=== PATIENT | female | born 1965 | race Caucasian/White ===

== ENCOUNTER 2019-07-14 12:51 | Emergency (ER) | payer BC, OTHER ==
[~2019-07-14] VITALS: Ht 157.5 cm; Wt 108.0 kg
[~2019-07-14 12:51] MED LIST: FENO145T PO; LISI40TA4 PO; METF100028 PO; [UNRECOGNIZED DRUG - CODE] SC
[2019-07-14 12:52] VITALS: BP 158/75
--- NOTE | 2019-07-14 13:00 | NUR ---
PATIENT AMBULATED TO BED 7.
--- NOTE | 2019-07-14 13:01 | NUR ---
Patient being evaluated by DR FRANKLIN at bedside.
[2019-07-14] MEDS ORDERED: NACL 0.9% 1,000 ML IV ONE (13:10)
--- NOTE | 2019-07-14 13:20 | NUR ---
53 Y/O F C/C ABNORMAL LABS. PT REFERRED TO ER FROM PCP. POTASSIUM TAKEN AT PCP 6.6. PT ASYMPTOMATIC, NO DISTRESS, NO PAIN. PLACED ON MONITOR. FULL FOWLERS. PT NKA. HX DM,HTN,HDL. RX ATORVASTATIN,LISINOPRIL,METFORMIN,ASA. NO N/V/D. SIDE RAIL X1.
--- NOTE | 2019-07-14 13:22 | NUR ---
LAB AT BEDSIDE
--- NOTE | 2019-07-14 13:30 | NUR ---
STAT LABS DRAWN FROM AND GIVEN TO COP EXAMINER.
[2019-07-14 13:31] LABS: BASOPHILS % (AUTO) 0.5 % (0.0-2.0); EOSINOPHILS # (AUTO) 0.2 K/uL (0-0.4); EOSINOPHILS % (AUTO) 2.7 % (0.0-4.0); HEMATOCRIT 33.3 % (36-48); HEMOGLOBIN 11.1 g/dL (12.0-16.0); LYMPHOCYTES # (AUTO) 2.3 K/uL (2.5-16.5); MEAN CORPUSCULAR HEMOGLOBIN 30 pg (27-31); MEAN CORPUSCULAR HGB CONC 33 g/dL (33-37); MEAN CORPUSCULAR VOLUME 88.9 fL (80-94); MONOCYTES # (AUTO) 0.4 K/uL (0.8-1.0); NEUTROPHILS # (AUTO) 4.2 K/uL (1.8-7.7); NEUTROPHILS % (AUTO) 59.8 % (42.2-75.2); PLATELET COUNT (AUTO) 280 K/uL (140-450); RED BLOOD CELL COUNT(AUTO) 3.75 MIL/uL (4.20-5.40); RED CELL DISTRIBUTION WIDTH 13.2 % (11.6-13.7); WHITE BLOOD COUNT (AUTO) 7.1 K/uL (4.8-10.8)
--- NOTE | 2019-07-14 13:54 | NUR ---
XR AT BEDSIDE.
--- NOTE | 2019-07-14 13:54 | NUR ---
XRAY AT BEDSIDE
[2019-07-14 14:14] LABS: ANION GAP 13.4 (8-16); CARBON DIOXIDE 26.4 mmol/L (21-32); POTASSIUM 4.8 mmol/L (3.5-5.1)
--- NOTE | 2019-07-14 14:15 | NUR ---
PT AMBULATED TO BATHROOM, STEADY GAIT.
--- NOTE | 2019-07-14 14:37 | NUR ---
DR. FRANKLIN AT BEDSIDE
[2019-07-14 14:55] VITALS: BP 145/58
--- NOTE | 2019-07-14 14:55 | NUR ---
Patient discharged with v/s stable. Written and verbal after care instructions given and explained. Patient alert, oriented and verbalized understanding of instructions. Ambulatory with steady gait. All questions addressed prior to discharge. ID band removed. Patient advised to follow up with PMD. Rx of amlodipine given. Patient educated on indication of medication including possible reaction and side effects. Opportunity to ask questions provided and answered.
== END 2019-07-14 14:55 | disposition home or self-care (01) ==
LOC: MED 12:51
DX: R79.9 Abnormal finding of blood chemistry, unspecified (principal); N17.0 Acute kidney failure with tubular necrosis; E11.9 Type 2 diabetes mellitus without complications; E87.5 Hyperkalemia; I10 Essential (primary) hypertension; Z79.899 Other long term (current) drug therapy; Z79.84 Long term (current) use of oral hypoglycemic drugs
CPT/HCPCS: 36415; 71045; 80048; 84443; 84484; 85025; 93005; 99285; J7030; Q0092

== ENCOUNTER 2020-05-27 04:45 | Emergency (ER) | payer OTHER ==
[~2020-05-27] VITALS: Ht 154.9 cm; Wt 104.8 kg
[~2020-05-27 04:45] MED LIST changes: +LISI40TA10 PO; -LISI40TA4 PO
[2020-05-27 04:47] VITALS: BP 154/72
--- NOTE | 2020-05-27 04:57 | NUR ---
54 YR OLD FEMALE PRESENTED TO THE ER WITH CC OF RIGHT KNEE PAIN AND LOWER BACK PAIN. PT IS AOX4. PT STATES 9/10 NON-RADIATING SHARP RIGHT KNEE PAIN AND 8/10 NON-RADIATING SHARP LOWER BACK PAIN. PT STATES WALKING LAST NIGHT AND RT KNEE AND LOWER BACK PAIN STARTED. PT DENIES OTHER MEDICAL COMPLAINTS. BED LOCKED IN LOWEST POSITION WITH 2 SIDE RAILS UP FOR SAFETY. WILL CONTINUE TO MONITOR. HISTORY- DM, HTN, ARTHRITIS, HIGH CHOLESTEROL ALLERGIES- NONE
--- NOTE | 2020-05-27 04:57 | NUR ---
ERMD AT BEDSIDE FOR MEDICAL EVALUATION.
[2020-05-27] MEDS ORDERED: KETOROLAC 30 MG/ML VIAL IM ONE (05:05)
--- NOTE | 2020-05-27 05:15 | NUR ---
X-RAY AT BEDSIDE.
--- NOTE | 2020-05-27 06:06 | NUR ---
PT FOUND AWAKE IN SEMI-ROSE'S POSITION IN BED. PT STATES 1/10 RIGHT KNEE AND LOWER BACK PAIN. PT DENIES OTHER MEDICAL COMPLAINTS. BED LOCKED IN LOWEST POSITION WITH 2 SIDE RAILS UP FOR SAFETY.
[2020-05-27] MEDS ORDERED: NAPR-54 PO (06:42)
[2020-05-27 07:06] VITALS: BP 134/69
== END 2020-05-27 07:06 | disposition home or self-care (01) ==
LOC: MED 04:45
DX: S83.91XA Sprain of unspecified site of right knee, initial encounter (principal); E11.9 Type 2 diabetes mellitus without complications; I10 Essential (primary) hypertension; Z79.4 Long term (current) use of insulin; Z79.899 Other long term (current) drug therapy; X50.1XXA Overexertion from prolonged static or awkward postures, initial encounter; Y93.01 Activity, walking, marching and hiking; Y92.89 Other specified places as the place of occurrence of the external cause; Y99.8 Other external cause status
CPT/HCPCS: 73562; 96372; 99283; J1885

== ENCOUNTER 2020-06-29 02:16 | Emergency (ER) | payer OTHER ==
[~2020-06-29] VITALS: Ht 154.9 cm; Wt 104.3 kg
[~2020-06-29 02:16] MED LIST changes: +NAPR-54 PO
[2020-06-29 02:22] VITALS: BP 157/77
--- NOTE | 2020-06-29 02:22 | NUR ---
TO BED AMBULATORY
--- NOTE | 2020-06-29 02:27 | NUR ---
54 Y/O FEMALE PRESENTS TO THE ED WITH COMPLAINTS OF N/V/D AND ABDOMINAL PAIN. PT REPORTS THAT IT ALL HAPPENED YESTERDAY. PAIN IS A 9/10 PAIN. ABDOMEN SOFT, ROUND, NON-TENDER, AND ACTIVE IN ALL QUADRANTS. PT DENIES BEING IN CONTACT WITH ANYONE WITH COVID. TYLENOL WAS TAKEN AT 2200 WITH NO RELIEF. VSS. SKIN IS PINK/WARM/DRY; AAOX4. PMH: DM, HTN, HDL, ARTHRITIS ALLERGIES: NKA
--- NOTE | 2020-06-29 02:29 | NUR ---
PT AMBULATED TO THE BATHROOM
[2020-06-29] MEDS ORDERED: KETOROLAC 30 MG/ML VIAL IVP ONE (02:35)
[2020-06-29] MEDS ORDERED: ONDANSETRON 4 MG/2 ML VIAL IVP ONE (02:35)
[2020-06-29] MEDS ORDERED: NACL 0.9% 1,000 ML IV ONE (02:35)
--- NOTE | 2020-06-29 03:18 | NUR ---
PATIENT SENT TO CT VIA [place]
--- NOTE | 2020-06-29 03:25 | NUR ---
BLOOD SENT TO LAB, RECEIVED BY ELISEO MOELLER
--- NOTE | 2020-06-29 03:27 | NUR ---
BACK FROM CT
[2020-06-29 03:35] LABS: BASOPHILS # (AUTO) 0.2 K/uL (0.00-0.22); BASOPHILS % (AUTO) 4.3 % (0.0-2.0); EOSINOPHILS % (AUTO) 0.6 % (0.0-4.0); HEMOGLOBIN 12.5 g/dL (12.0-16.0); LYMPHOCYTES # (AUTO) 0.8 K/uL (2.5-16.5); LYMPHOCYTES % (AUTO) 15.6 % (20.5-51.1); MEAN CORPUSCULAR HEMOGLOBIN 30 pg (27-31); MEAN CORPUSCULAR HGB CONC 34 g/dL (33-37); MEAN CORPUSCULAR VOLUME 87.4 fL (80-94); MONOCYTES # (AUTO) 0.2 K/uL (0.8-1.0); MONOCYTES % (AUTO) 3.2 % (1.7-9.3); NEUTROPHILS % (AUTO) 76.3 % (42.2-75.2); PLATELET COUNT (AUTO) 264 K/uL (140-450); RED BLOOD CELL COUNT(AUTO) 4.23 MIL/uL (4.20-5.40); RED CELL DISTRIBUTION WIDTH 13.2 % (11.6-13.7); WHITE BLOOD COUNT (AUTO) 5.2 K/uL (4.8-10.8)
[2020-06-29 03:45] LABS: ALBUMIN 2.9 g/dL (3.4-5.0); ANION GAP 12.2 (8-16); CARBON DIOXIDE 25.7 mmol/L (21-32); POTASSIUM 3.9 mmol/L (3.5-5.1); TOTAL BILIRUBIN 0.6 mg/dL (0.0-1.0)
--- NOTE | 2020-06-29 04:25 | NUR ---
Patient appears to be resting comfortably in bed. Vital Signs within normal limits. Respirations even and unlabored.
[2020-06-29] MEDS ORDERED: IBUP-2213 PO (05:22)
[2020-06-29] MEDS ORDERED: ONDA8TAB87 PO (05:22)
--- NOTE | 2020-06-29 05:33 | NUR ---
Patient discharged with v/s stable. PAIN REPORTED TO THE PATIENT WAS 0/10. Written and verbal after care instructions given and explained. Patient alert, oriented and verbalized understanding of instructions. Ambulatory with steady gait. All questions addressed prior to discharge. ID band removed. Patient advised to follow up with PMD. Rx of IBUPROFEN & ZOFRAN given. Patient educated on indication of medication including possible reaction and side effects. Opportunity to ask questions provided and answered.
[2020-06-29 05:35] VITALS: BP 157/77
== END 2020-06-29 05:33 | disposition home or self-care (01) ==
LOC: MED 02:16
DX: R11.2 Nausea with vomiting, unspecified (principal); R10.32 Left lower quadrant pain; R50.9 Fever, unspecified; E11.9 Type 2 diabetes mellitus without complications; I10 Essential (primary) hypertension; Z79.899 Other long term (current) drug therapy
CPT/HCPCS: 36415; 74176; 80053; 81002; 81025; 83690; 85025; 96361; 96374; 96375; 99284; J1885; J2405; J7030